=== PATIENT | female | born 1960 | race Caucasian/White ===

== ENCOUNTER 2016-11-07 07:38 | Day surgery (SDC) | payer MEDICARE, BC ==
--- NOTE | 2016-11-07 07:06 | History and Physical Report ---
DATE OF EVALUATION: 11/06/2016. CHIEF COMPLAINT AND HISTORY OF CHIEF COMPLAINT: This patient presents with a history of intractable postlaminectomy radiculitis. She has a spinal opioid infusion system in place infusing morphine. Over the last refill it was identified that she had battery depletion. She is here for battery replacement. PAST MEDICAL HISTORY: Noncontributory. REVIEW OF SYSTEMS: The patient is appropriate and in no acute distress. The remainder of the systems review is positive for glasses, headaches, peptic ulcer disease, degenerative arthritis, fibromyalgia, difficulty sleeping. SOCIAL HISTORY: She is a smoker, social alcohol. FAMILY HISTORY: Coronary artery disease and cancer. PAST SURGICAL HISTORY: Lumbar laminectomy, knee surgery, carpal tunnel release , shoulder surgery, pump implant. ALLERGIES: To be provided. MEDICATIONS ON ADMISSION: To be provided. PHYSICAL EXAMINATION: General: Height is 5 feet, 3 inches. Weight is 120 pounds. Vital Signs: Unavailable. HEENT: Within normal limits. Lungs: Clear. Heart: Regular rate and rhythm. Abdomen: Nontender. Musculoskeletal: Examination of the musculoskeletal system shows diffuse tenderness throughout the lumbar spine. Range of motion produces pain into the low back with extension. The pump surgical site is intact. Neurologic: Cranial nerves are intact. DIAGNOSTIC STUDIES: Were reviewed. IMPRESSIONS: 1. INTRACTABLE CERVICAL RADICULITIS. 2. POSTLAMINECTOMY SYNDROME. 3. SPINAL INFUSION SYSTEM WITH A DEPLETED BATTERY. PLANS: The patient is here for replacement of the battery. The procedure will be performed on an outpatient basis. All of the potential risks, side effects, and complications have been reviewed and discussed. Ethan Allen D.O. Date Time JOB NUMBER: [id number] cc: Taj Aguilar
[~2016-11-07 07:38] MED LIST: ACETAMINOPHEN 1000MG/100 ML PREMIX IV ONE; CEFAZOLIN 2 Gram 50 ML IVPB ONE; FAMOTIDINE 20MG TABLET PO ONE; MECLIZINE 25 MG TABLET PO ONE; METOCLOPRAMIDE 10 MG TABLET PO ONE; MORPHINE SULFATE IV ONE; MORPHINE SULFATE/PF 0.05 MG in 0.9 % SODIUM CHLORIDE 10ML VIA 0.95 ML IV ONE; SODIUM CHLORIDE 0.9% IV ONE
[2016-11-07] MEDS ORDERED: LIDOCAINE 1% W/EPI 1:200,000 MPF 30ML SQ ONE (13:26)
[2016-11-07] MEDS ORDERED: CEFAZOLIN 1G VIAL IM ONE (13:26)
[2016-11-07] MEDS ORDERED: BUPIVACAINE 0.5% W/EPI MPF 30 ML VIAL IVP ONE (13:26)
[2016-11-07] MEDS ORDERED: *PACU ONLY* KETAMINE HCL 10 MG/ML (20ML) VIAL IV ONE (16:11)
[2016-11-07] MEDS ORDERED: MIDAZOLAM HCL 2MG/2ML VIAL IV ONE (16:11)
[2016-11-07] MEDS ORDERED: DEXMEDETOMIDINE HCL 200 MCG/2 ML VIAL IV ONE (16:11)
[2016-11-07] MEDS ORDERED: FENTANYL PF 100MCG/2ML VIAL IV ONE (16:11)
--- NOTE | 2016-11-09 13:18 | Operative Note ---
PAIN SERVICE OPERATIVE REPORT DATE OF PROCEDURE: 11/07/2016. PREOPERATIVE DIAGNOSES: 1. POSTLUMBAR LAMINECTOMY SYNDROME, ICD10 CODE M96.1. 2. LUMBAR RADICULITIS, ICD10 CODE M54.16 AND M54.17. 3. IMPLANTED SPINAL INFUSION SYSTEM WITH MORPHINE, BATTERY DEPLETION. PROCEDURES: 1. Incision, subcutaneous dissection, and removal of indwelling pump, right posterior gluteal margin. Replacement with similar 20 mL programmable Medtronic pump. 2. Pouch revision. Interface indwelling spinal catheter to pump, securing to posterior fascia with nonabsorbable suture. 3. Aspiration of 1.0 mL of catheter contents through access port. 4. Diagnostic myelography through access port with radiologic supervision and interpretation confirming catheter position and flow characteristics. 5. Closure of incision with Vicryl for fascia and running subcuticular Vicryl for skin. Dermabond closure. 6. Programming of pump to deliver by continuous infusion morphine; previous 4.1 mg per day. SURGEON: Ethan Allen D.O. ANESTHESIA: Local sedation. ANESTHESIA PROVIDER: Ashlyn Stokes CRNA. INDICATIONS: This is a patient with a postlaminectomy radiculitis. She has a spinal infusion system with morphine. Over the last number of refills it was identified that she was at the end of life of the battery. Because of an illness, she has now ten days before end of life. She is here for pump battery replacement. DESCRIPTION OF PROCEDURE: Intravenous line, vital sign monitoring, and IV sedation. Prepped and draped with sterile technique. The patient was positioned on the operating room table prone. At the right posterior gluteal margin pump pouch site, the skin was infiltrated with local. An incision was made and subcutaneous dissection was conducted to the pump pouch. The pouch was opened and the pump was exteriorized. The pump was then from the indwelling catheter. The catheter was inspected. It appeared to be clear of any adhesions or kinks. A new pump was placed onto the field prefilled with morphine 25 mg/mL concentration. The pump was then interfaced with the indwelling catheter. A 24-gauge [place] needle was inserted into the access port and 1 mL of catheter contents was aspirated clearing the catheter of opioid and cerebrospinal fluid mixture. Diagnostic myelography was then performed under radiologic supervision and interpretation. Contrast flow characteristics were appropriate, identifying catheter flow. There were no kinks, bends, or leaks. The catheter tip approximating L1 identified with appropriate flow characteristics noted. The pump was then in the pouch secured to the fascia with nonabsorbable suture at two points through pump eyelets. The incision was then closed using Vicryl to the fascia and running subcuticular Vicryl to the skin. A Dermabond closure system was placed. The pump was then programmed with the previous parameters with a base rate of 4.1 mg per day. All appropriate alarms were set in the system. She was transported to the recovery room stable showing no side effects from the procedure or the sedation. DISCHARGE INSTRUCTIONS: 1. The sites will remain clean and dry. No showering or bathing in any way that would disrupt dressings. If it happens, contact the clinic. 2. Standard medications may be resumed including her antibiotic Levaquin 500 mg once a day for 14 days. 3. Spinal opioid side effects including respiratory depression, nausea, vomiting, constipation, urinary retention, lightheadedness, and rash have all been discussed and reviewed in detail. 4. She will be seen in the office in five to seven days to inspect the incision. She should keep her activities low until that point in time. Ethan Allen D.O. Date Time JOB NUMBER: [id number] cc: Taj Bravo
--- NOTE | 2016-11-13 08:54 | RADIOLOGY REPORT ---
EXAM: THORACOLUMBAR AP SPINE HISTORY: PAIN PUMP PLACEMENT. TECHNIQUE: A single AP portable view of the thoracolumbar spine was obtained. Comparison: Thoracolumbar spine film of 11/29/10. FINDINGS: Somewhat tear drop shaped battery pack overlying the right lower quadrant similar to before with the associated catheter extending to the spine at the L4 level and ascending up to the approximate L1 level, partially obscured by the wires extending from the left lower quadrant battery pack. There is a rectangular shaped battery pack in the left lower quadrant similar to before with the two wires extending to the spine at the L2 level and ascending up to the presumed T7 level. Some contrast is seen overlying the lower spinal canal presumably within the thecal sac. Lower lumbar levoscoliosis with degenerative change particularly at the L3-L4 interspace. IMPRESSION: RIGHT SIDED BATTERY PACK WITH ASSOCIATED CATHETER EXTENDING UP TO THE APPROXIMATE L1 LEVEL. LEFT SIDED BATTERY PACK WITH THE WIRES EXTENDING UP TO THE APPROXIMATE T7 LEVEL. JOB NUMBER: [id number] MTDD
== END 2016-11-07 10:48 | disposition home or self-care (01) ==
LOC: SUR 07:38
PROVIDERS: ATTEND Pain Medicine Interventional Pain Medicine
DX: Z45.1 Encounter for adjustment and management of infusion pump (principal); M96.1 Postlaminectomy syndrome, not elsewhere classified; M54.16 Radiculopathy, lumbar region; M54.17 Radiculopathy, lumbosacral region; F17.200 Nicotine dependence, unspecified, uncomplicated
CPT/HCPCS: 62362; 00300; 62367; 85002; 72020; Q9967; J3010; J0690; J3490